=== PATIENT | female | born 1930 | race Asian ===

== ENCOUNTER 2016-11-27 00:37 | Emergency (ER) | payer MEDICARE, OTHER ==
[~2016-11-27] VITALS: Ht 157.5 cm; Wt 72.0 kg
[~2016-11-27 00:37] MED LIST: ALBU0.21 IH; ALLO100T PO; ALPR0.5T8 PO; AMLO-512 PO; AZIT500I IV; BENZ-26 PO; BIMA5DRO OU; BRIN10DR OU; BUDE0.252 IH; CALC667T3 PO; CLON.1 PO; DOCU-119 PO; EPOE4000 IJ; FLUT1DIS5 PO; GUAI600T PO; IPRA3AMP4 IH; MELO-273 PO; MONT10TA21 PO; MULT1TAB PO; OMEP20CA10 PO; PARO20TA24 PO; RANI150C4 PO; SITA50 PO; SOLI5 PO; TELM40 PO; TRAM50TA4 PO; [UNRECOGNIZED DRUG - CODE] PO
[2016-11-27] MEDS ORDERED: LOSA25TA21 PO (00:56)
[2016-11-27 01:07] LABS: GLUCOSE,POINT OF CARE 111 MG/DL (70-110)
[2016-11-27] MEDS ORDERED: DiphenhydrAMINE HCL 50 MG/ML VIAL IVP ONE (01:30)
[2016-11-27] MEDS ORDERED: MethylPREDNISolone SOD SUCC 125 MG/2 ML VIAL IVP ONE (01:30)
[2016-11-27 01:52] LABS: EOSINOPHILS % (AUTO) 10.4 % (1.0-6.0); HEMATOCRIT 29.6 % (36-46); HEMOGLOBIN 10.1 g/dL (12.0-16.0); LYMPHOCYTES # (AUTO) 1.5 K/uL (1.0-4.8); LYMPHOCYTES % (AUTO) 17.4 % (22.0-44.0); MEAN CORPUSCULAR HEMOGLOBIN 31.8 pg (26.0-34.0); MEAN CORPUSCULAR VOLUME 94 fL (80-100); MONOCYTES # (AUTO) 0.3 K/uL (0.1-1.0); MONOCYTES % (AUTO) 3.9 % (2.0-9.0); NEUTROPHILS # (AUTO) 5.9 K/uL (1.8-7.7); NEUTROPHILS % (AUTO) 68.3 % (40.0-70.0); PLATELET COUNT (AUTO) 193 K/uL (150-450); RED BLOOD CELL COUNT(AUTO) 3.17 MIL/uL (4.00-5.20); RED CELL DISTRIBUTION WIDTH 14.8 % (11.5-14.5); WHITE BLOOD COUNT (AUTO) 8.6 K/uL (4.5-11.0)
[2016-11-27 01:59] VITALS: BP 136/79
[2016-11-27 02:01] LABS: CALCIUM, TOTAL 9.2 mg/dL (8.8-10.5); CREATININE 2.78 mg/dL (0.60-1.30)
[2016-11-27 02:07] LABS: ALBUMIN 3.1 g/dL (3.4-5.0); BILIRUBIN,TOTAL 0.3 mg/dL (0.1-1.0); TOTAL PROTEIN, SERUM 7.1 g/dL (6.4-8.2)
== END 2016-11-27 02:35 | disposition home or self-care (01) ==
LOC: EMS 00:39
DX: T78.40XA Allergy, unspecified, initial encounter (principal); R79.89 Other specified abnormal findings of blood chemistry; E11.29 Type 2 diabetes mellitus with other diabetic kidney complication; N28.9 Disorder of kidney and ureter, unspecified; T36.1X5A Adverse effect of cephalosporins and other beta-lactam antibiotics, initial encounter; I10 Essential (primary) hypertension; J45.909 Unspecified asthma, uncomplicated; K21.9 Gastro-esophageal reflux disease without esophagitis; Z88.1 Allergy status to other antibiotic agents; Y92.89 Other specified places as the place of occurrence of the external cause
CPT/HCPCS: 36415; 80053; 82962; 85025; 96374; 96375; 99284; J1200; J2930

== ENCOUNTER 2018-04-25 07:37 | Emergency (ER) | payer MEDICARE, OTHER ==
[~2018-04-25] VITALS: Ht 160 cm; Wt 62.0 kg
[~2018-04-25 07:37] MED LIST changes: -ALPR0.5T8 PO; -AZIT500I IV; -BENZ-26 PO; -BIMA5DRO OU; -BRIN10DR OU; -BUDE0.252 IH; +CLON-570 PO; -CLON.1 PO; -DOCU-119 PO; -EPOE4000 IJ; -GUAI600T PO; +IPRA3AMP24 IH; -IPRA3AMP4 IH; +LOSA25TA41 PO; -MELO-273 PO; -RANI150C4 PO; -SITA50 PO; -SOLI5 PO; -TELM40 PO; -TRAM50TA4 PO; -[UNRECOGNIZED DRUG - CODE] PO
[2018-04-25] MEDS ORDERED: CloNIDine HCL 0.1 MG TABLET PO ONE (08:00)
[2018-04-25] MEDS ORDERED: LOSARTAN POTASSIUM 50 MG TABLET PO ONE (08:00)
[2018-04-25] MEDS ORDERED: LOSA50TA64 PO (08:06)
[2018-04-25] MEDS ORDERED: VITAD1000 PO (08:06)
[2018-04-25] MEDS ORDERED: QUET25TA PO (08:06)
[2018-04-25] MEDS ORDERED: KETOROLAC TROMETHAMINE 30 MG/ML VIAL IVP ONE (09:15)
[2018-04-25] MEDS ORDERED: KETOROLAC TROMETHAMINE 60 MG/2 ML VIAL IM ONE (09:15)
[2018-04-25 12:17] VITALS: BP 154/84
== END 2018-04-25 12:59 | disposition home or self-care (01) ==
LOC: EMS 07:39
DX: S00.83XA Contusion of other part of head, initial encounter (principal); S20.212A Contusion of left front wall of thorax, initial encounter; M25.512 Pain in left shoulder; J45.909 Unspecified asthma, uncomplicated; E11.9 Type 2 diabetes mellitus without complications; K21.9 Gastro-esophageal reflux disease without esophagitis; I10 Essential (primary) hypertension; F41.9 Anxiety disorder, unspecified; Z88.5 Allergy status to narcotic agent; Z90.49 Acquired absence of other specified parts of digestive tract; W06.XXXA Fall from bed, initial encounter; Y93.89 Activity, other specified; Y92.89 Other specified places as the place of occurrence of the external cause; Y99.8 Other external cause status
CPT/HCPCS: 70486; 71045; 96372; 99284; J1885

== ENCOUNTER 2018-06-04 08:33 | Emergency (ER) | payer MEDICARE, OTHER ==
[~2018-06-04] VITALS: Ht 162.6 cm; Wt 72.7 kg
[~2018-06-04 08:33] MED LIST changes: -ALBU0.21 IH; -ALLO100T PO; -LOSA25TA41 PO; +LOSA50TA64 PO; +QUET25TA PO; +VITAD1000 PO
[2018-06-04 09:24] LABS: GLUCOSE,POINT OF CARE 119 MG/DL (70-110)
[2018-06-04 09:56] LABS: BASOPHILS % (AUTO) 1.3 % (0.0-2.0); EOSINOPHILS % (AUTO) 3.8 % (1.0-6.0); HEMATOCRIT 34.6 % (36-46); HEMOGLOBIN 11.6 g/dL (12.0-16.0); LYMPHOCYTES # (AUTO) 1.5 K/uL (1.0-4.8); LYMPHOCYTES % (AUTO) 31.7 % (22.0-44.0); MEAN CORPUSCULAR HEMOGLOBIN 32.6 pg (26.0-34.0); MEAN CORPUSCULAR HGB CONC 33.5 G/dL (31.0-37.0); MEAN CORPUSCULAR VOLUME 97 fL (80-100); MONOCYTES # (AUTO) 0.3 K/uL (0.1-1.0); MONOCYTES % (AUTO) 6.8 % (2.0-9.0); NEUTROPHILS # (AUTO) 2.6 K/uL (1.8-7.7); NEUTROPHILS % (AUTO) 56.4 % (40.0-70.0); PLATELET COUNT (AUTO) 263 K/uL (150-450); RED BLOOD CELL COUNT(AUTO) 3.56 MIL/uL (4.00-5.20); RED CELL DISTRIBUTION WIDTH 14.4 % (11.5-14.5)
[2018-06-04 10:09] LABS: CALCIUM, TOTAL 9.7 mg/dL (8.8-10.5); CREATININE 2.33 mg/dL (0.60-1.30); POTASSIUM 4.5 mmol/L (3.5-5.1)
[2018-06-04 10:14] LABS: ALBUMIN 3.8 g/dL (3.4-5.0); BILIRUBIN,TOTAL 0.4 mg/dL (0.1-1.0); TOTAL PROTEIN, SERUM 7.8 g/dL (6.4-8.2)
[2018-06-04 10:30] VITALS: BP 148/81
[2018-06-04 10:58] LABS: APPEARANCE,URINE CLEAR (CLEAR); BILIRUBIN,URINE NEGATIVE (NEGATIVE); GLUCOSE, URINE (UA) NEGATIVE (NEGATIVE); KETONES,URINE NEGATIVE (NEGATIVE); LEUKOCYTE ESTERASE ,URINE NEGATIVE (NEGATIVE); NITRATE,URINE NEGATIVE (NEGATIVE); OCCULT BLOOD,URINE TRACE (NEGATIVE); PROTEIN,URINE SEE CONFIRM (NEGATIVE); UROBILINOGEN,URINE 0.2 mg/dL (<=1.0)
[2018-06-04 11:08] LABS: BACTERIA,URINE None Seen /HPF (None Seen); RBC,URINE 0-2 /HPF (0-2); SULFOSALICYLIC ACID,URINE 1+ (Negative); WBC,URINE 0-2 /HPF (0-5)
== END 2018-06-04 14:04 | disposition home or self-care (01) ==
LOC: EMS 08:34
DX: N83.291 Other ovarian cyst, right side (principal); I12.9 Hypertensive chronic kidney disease with stage 1 through stage 4 chronic kidney disease, or unspecified chronic kidney disease; E11.22 Type 2 diabetes mellitus with diabetic chronic kidney disease; N18.9 Chronic kidney disease, unspecified; K21.9 Gastro-esophageal reflux disease without esophagitis; J45.909 Unspecified asthma, uncomplicated; F41.9 Anxiety disorder, unspecified; Z90.49 Acquired absence of other specified parts of digestive tract; Z88.1 Allergy status to other antibiotic agents
CPT/HCPCS: 74176; 93005